=== PATIENT | female | born 1990 | race Caucasian/White ===

== ENCOUNTER 2019-02-13 13:35 | Inpatient (IN) | payer OTHER, SELFPAY ==
[2019-02-13 13:54] VITALS: BMI 38.2
[2019-02-13] MEDS: Lactated Ringers 1,000 ML 50 ML IV (13:55)
[2019-02-13 14:14] LABS: Absolute Lymphocyte Count 1.72 X10^3/ul (0.83-4.51); Absolute Neutrophil Count 7.7 X10^3/uL (2.0-7.7); Eosinophil# 0.04 X10^3/uL; Eosinophils% 0.4 % (0-5); Hematocrit 38.6 % (37-47); Hemoglobin 13.1 g/dl (12.0-15.0); Lymphocyte # 1.72 X10^3/ul (4.0); Mean Corp Hgb Conc 33.9 g/gl (32-36); Mean Corpuscular Hgb 26.7 pg (27.0-32.0); Mean Corpuscular Volume 78.8 fL (81-99); Mean Platelet Vol. 11.1 fl (6.2-12.0); Monocyte# 0.63 X10^3/uL; Monocyte% 6.2 % (0-10); Neutrophil # 7.67 X10^3/uL (2.7-7.7); Platelet Count 115 K/mm3 (150-450); RBC Distribution Width CV 14.4 % (11.6-14.6); RBC Distribution Width SD 40.3 fl (35.1-43.9); White Blood Count 10.1 K/mm3 (4.4-11.0)
[2019-02-13 14:16] LABS: POSITIVE COUNT NO; POSITIVE DIFFERENTIAL NO; POSITIVE MORPHOLOGY NO
--- NOTE | 2019-02-13 14:20 | PCM.HP.OB ---
- Problem List (1) History of hyperthyroidism Status: Acute (2) History of depression Status: Acute (3) Family history of complex congenital heart disease Status: Acute (4) Gestational thrombocytopenia Status: Acute (5) Post-dates Status: Acute History Date of Admission: 02/13/19 Final TITO: 02/08/19 Final TITO Source: US <20 weeks Gestational age: 40 Weeks and 5 Days History of this : This is a 28 year-old, G [2], P [1001], at 40 weeks gestational age. Presented to ER with complaint of uterine contractions. Upon arrival patient found to be 7cm dilated. at bedside. Denies any leakage of fluid or vaginal bleeding. Baby moving well. Allergies morphine Allergy (Verified 02/13/19 13:55) Hives Home Medications: Home Medications Vits [Prenatabs FA] 1 tablet PO DAILY 02/13/19 Sertraline HCl [Zoloft] 50 mg PO DAILY 02/13/19 Smoking Status: Former smoker Alcohol: None Heart Tracin, moderate variability, accels, no decels, Category 1 TOCO: Every 2-3minutes, moderate to strong to palpation. History Past Pregnancies: Past Pregnancies Delivery Date Name GA/Weeks Outcome Route Weight Gender Labor Length Anesthesia Delivery Location Provider FOB Labs: GBS negative Urine tox screen negative RPR negative Rubella Immune HBsAG negative HIV negative O positive 1hr GCT 98 nml GC/CT negative Expected Infant Delivery Method: Spontaneous Vaginal Review of Systems Constitutional: Denies: Chills, Fever, Weight Change HEENT: Denies: Head Aches, Sinus Congestion, Sinus Drainage Cardiovascular: Denies: Chest Pain, Palpitations Respiratory: Denies: Cough, Shortness of breath at rest, Sputum production Genitourinary: Denies: Dysuria Psychiatric: Denies: Anxiety, Depression, Homicidal Ideations, Suicidal Ideations Physical Exam General: Alert, Oriented x3, No apparent distress HEENT: Atraumatic, Normocephalic Cardiovascular: Regular rate, Regular Rhythm, No murmurs Lungs: Clear to auscultation, Normal air movement, No rhonchi, No wheeze Abdomen: Gravid Extremities:: No edema Neurological: Deep Tendon Reflexes 2+/4 and Symmetrical. Negative for: Clonus SPARERIBS TRIMMER: Normal external genitalia Estimated gestational size: Appropriate for gestational size Presentation: Cephalic Cervix Dilation (cm): 7 - IBOW, vertex Station: -1 Effacement (%): 70 Assessment/Plan All Active Problems History of hyperthyroidism (Acute) History of depression (Acute) Family history of complex congenital heart disease (Acute) Gestational thrombocytopenia (Acute) Post-dates (Acute) This is a 28 year-old, G [2], P [1001], at 40 weeks gestational age. A:Active Labor Category 1 FHT P: 1) Admit to L&D. Routine labs 2) Desires without epidural. Will offer continuous labor support, nitrous, IV pain medication if desires. 3) notified of patient in labor and admission. 4) May do intermittent auscultation if category 1 FHT on admission.
[2019-02-13] MEDS: 0.9% Saline Lock 10 ML Syringe IV ×2 (15:02→18:35)
[2019-02-13] MEDS: Ondansetron 4 MG/2 ML Vial IV (15:25)
[2019-02-13] MEDS: fentaNYL-bupivacaine (epidural) 100 ML BAG EPIDURAL (15:45)
[2019-02-13] MEDS: Oxytocin 30 units/NS 500 ml 30 UNITS/500 ML IV.SOLN 334 UNITS IV (16:45)
[2019-02-13] MEDS: Oxytocin 30 units/NS 500 ml 30 UNITS/500 ML IV.SOLN 167 UNITS IV (17:15)
--- NOTE | 2019-02-13 17:15 | PCM.OPRPT ---
Problem List (1) History of hyperthyroidism Status: Acute (2) History of depression Status: Acute (3) Family history of complex congenital heart disease Status: Acute (4) Gestational thrombocytopenia Status: Acute (5) Post-dates Status: Acute (6) (normal spontaneous vaginal delivery) Status: Acute (7) First degree perineal laceration Status: Acute (8) True knot in umbilical cord Status: Acute (9) Perineal hematoma during delivery Status: Acute Vaginal Delivery Maternal Presentation: Active Labor Amniotic Membrane Rupture Type: Artificial Amniotic Fluid Description: Clear Final TITO: 02/13/19 Final TITO Source: US <20 weeks Gestational age: 40 Weeks and 0 Days Date of Procedure: 02/13/19 Pre-Operative Diagnosis: Active Labor Post-Operative Diagnosis: Surgery/ Procedure Performed: Spontaneous Vaginal Delivery Type of Anesthesia: Epidural, Local with 1% lidocaine Description of Procedure: Epidural placed with some relief. [place] increased pressure. Unable to auscultate FHT, FSE placed. Patient with increased pain and strong urge to push. FHT down to 60's and back up to 70-80's. Good maternal pushing effort. of viable male over 1st degree perineal laceration. head delivered and body forth coming. Infant placed on maternal abdomen. Mouth and nares suctioned for secretions. Cord clamping delayed 30 seconds. Poor respiratory effort. Cord clamped and cut by FOB. handed to awaiting rover tender and nursing staff. Strong cry. APGARS 7,9. Pitocin started for active 3rd stage management. Placenta delivered, intact via imndy, 3 vessel cord, true knot in cord. Cord gases obtained. Perineum inspected and revealed 1st degree perineal laceration, repaired with 1% lidocaine and 3.0 vicryl. Perineal hematoma on left side of perineum. Stable and not increasing in size, approximately 2x2cm. Fundus firm, hemostasis achieved, EBL 450ml. Vaginal sweep completed. Sponge and instrument count correct. Mom and baby stable, family bonding well. Planning to bottle feed. notified of delivery. Presentation: Vertex Placental Delivery Description: Spontaneous Placenta Disposition: [facility] Cord Vessel Description: 3 Vessels Cord Gases drawn per routine: ABG, VBG Cord Entanglement: None Estimated Blood Loss: 450ml A gender: Male (1 minute): 7 (5 minute): 9 Episiotomy Description: None Laceration: Perineal Extension/lac, 1st degree Medications given after delivery: IV Pitocin Complications: None
--- NOTE | 2019-02-13 17:22 | OP.PCM_ITS ---
Problem List (1) History of hyperthyroidism Status: Acute (2) History of depression Status: Acute (3) Family history of complex congenital heart disease Status: Acute (4) Gestational thrombocytopenia Status: Acute (5) Post-dates Status: Acute (6) (normal spontaneous vaginal delivery) Status: Acute (7) First degree perineal laceration Status: Acute (8) True knot in umbilical cord Status: Acute (9) Perineal hematoma during delivery Status: Acute Vaginal Delivery Maternal Presentation: Active Labor Amniotic Membrane Rupture Type: Artificial Amniotic Fluid Description: Clear Final TITO: 02/13/19 Final TITO Source: US <20 weeks Gestational age: 40 Weeks and 0 Days Date of Procedure: 02/13/19 Pre-Operative Diagnosis: Active Labor Post-Operative Diagnosis: Surgery/ Procedure Performed: Spontaneous Vaginal Delivery Type of Anesthesia: Epidural, Local with 1% lidocaine Description of Procedure: Epidural placed with some relief. [place] increased pressure. Unable to auscultate FHT, FSE placed. Patient with increased pain and strong urge to push. FHT down to 60's and back up to 70-80's. Good maternal pushing effort. of viable male over 1st degree perineal laceration. head delivered and body forth coming. Infant placed on maternal abdomen. Mouth and nares suctioned for secretions. Cord clamping delayed 30 seconds. Poor respiratory effort. Cord clamped and cut by FOB. handed to awaiting airline lounge receptionist and nursing staff . Strong cry. APGARS 7,9. Pitocin started for active 3rd stage management. Placenta delivered, intact via mindy, 3 vessel cord, true knot in cord. Cord gases obtained. Perineum inspected and revealed 1st degree perineal laceration, repaired with 1% lidocaine and 3.0 vicryl. Perineal hematoma on left side of perineum. Stable and not increasing in size, approximately 2x2cm. Fundus firm, hemostasis achieved, EBL 450ml. Vaginal sweep completed. Sponge and instrument count correct. Mom and baby stable, family bonding well. Planning to bottle feed. notified of delivery. Presentation: Vertex Placental Delivery Description: Spontaneous Placenta Disposition: [facility] Cord Vessel Description: 3 Vessels Cord Gases drawn per routine: ABG, VBG Cord Entanglement: None Estimated Blood Loss: 450ml A gender: Male (1 minute): 7 (5 minute): 9 Episiotomy Description: None Laceration: Perineal Extension/lac, 1st degree Medications given after delivery: IV Pitocin Complications: None
[2019-02-13] MEDS: Ibuprofen 600 MG Tablet PO (18:34)
[2019-02-13 20:15] VITALS: BP 133/82; PULSE 90; RESP 16; TEMP 36.7; O2SAT 98
[2019-02-13] MEDS: Sertraline 50 MG Tablet PO (21:45)
[2019-02-13] MEDS: Acetaminophen 500 MG Tablet 1000 MG PO (22:20)
[2019-02-14 00:30] VITALS: BP 130/88; PULSE 68; RESP 16; TEMP 36.2; O2SAT 96
[2019-02-14] MEDS: Ibuprofen 600 MG Tablet PO ×2 (02:20→11:27)
[2019-02-14 04:00] VITALS: BP 133/87; PULSE 82; RESP 16; TEMP 36.3; O2SAT 96
[2019-02-14 04:45] LABS: Hematocrit 31.6 % (37-47); Hemoglobin 10.4 g/dl (12.0-15.0); Mean Corp Hgb Conc 32.9 g/gl (32-36); Mean Corpuscular Hgb 26.3 pg (27.0-32.0); Mean Platelet Vol. 10.9 fl (6.2-12.0); Platelet Count 130 K/mm3 (150-450); RBC Distribution Width CV 14.4 % (11.6-14.6); RBC Distribution Width SD 40.7 fl (35.1-43.9); Red Blood Count 3.95 M/mm3 (4.2-5.4); White Blood Count 12.8 K/mm3 (4.4-11.0)
[2019-02-14 04:50] LABS: Scan Indicated on CBC? Y/N NO
[2019-02-14] MEDS: Acetaminophen 500 MG Tablet 1000 MG PO (07:49)
[2019-02-14 07:52] VITALS: BP 136/89; PULSE 87; RESP 18; TEMP 36.4; O2SAT 97
--- NOTE | 2019-02-14 08:28 | DCINST_ITS ---
Discharge Diet: No Restrictions Discharge Activity: Return to Normal Activity, May not drive while taking narcotic pain medications., May Shower May resume sexual activity in: 4-6 weeks Additional Activity Instructions:: Nothing in the vagina for 4-6 weeks. You may return to work/school in 6 weeks. Call your doctor if your incision/area has: Continuous Slow Oozing, Sudden Increased Bleeding, Increased Pain/ Swelling, Increased Redness, Foul Smelling Discharge Call your doctor if you observe: Fever of 101 or Higher, Inability to urinate, Inability to have a bowel movement, Using more than one pad per hour, Uncontrolled pain Additional Instructions: If you experience any of the following, contact your healthcare provider. * Bleeding that soaks a pad every hour for 2 hours * Fever 100.4 or higher * Unrelieved incision or abdominal pain * Swelling, redness, discharge or bleeding from your incision or episiotomy site * Your incision begins to separate * Problems urinating (including inability to urinate or burning while urinating). * Visual changes * Severe headache * Flu-like symptoms * Pain or redness in one of both of your breasts * Pain, warmth, tenderness or swelling in your legs, especially the calf area * Frequent nausea and vomiting * Symptoms of depression or anxiety If you experience any of the following, call 911 or go to the nearest Emergency Room. * Chest pain * Problems breathing * Seizure activity * Partial or complete paralysis of a body part, slurred speech, weakness or drooping of the face, or a sudden inability to walk or hold your balance Allergies/Adverse Reactions: Allergies morphine Allergy (Verified 02/13/19 13:55) Hives Medications to take at Discharge Vits [Prenatabs FA] 1 tablet PO DAILY 02/13/19 Sertraline HCl [Zoloft] 50 mg PO DAILY 02/13/19 Please Follow Up With: Lexie Ray CNM When: Call to make an appointment with your provider in 2 weeks and 6 weeks. Primary Care Physician: Ernst Islas MD [Primary Care Provider] - Test Results: Test results from this visit will be discussed in further detail at your follow- up appointment, if applicable. Proposed Discharge Date: 02/15/19
--- NOTE | 2019-02-14 08:41 | PCM.PN.OB ---
Patient Problems: Active and Suspected Problems History of hyperthyroidism (Acute) History of depression (Acute) Family history of complex congenital heart disease (Acute) Gestational thrombocytopenia (Acute) Post-dates (Acute) (normal spontaneous vaginal delivery) (Acute) First degree perineal laceration (Acute) True knot in umbilical cord (Acute) Perineal hematoma during delivery (Acute) Subjective: Patient sitting up in bed, bonding with baby at this time. Baby just finished a formula feeding session - baby is tolerating sensitive formula better now. Patient denies any issues; denies issues with ambulation or urination. Denies GUTHRIE, scotoma or dizziness. Objective: VSS, Afebrile Nipples without cracks, blisters Abdomen NT x 4 quadrants, FF midline 3FB below umbilicus +2/4 reflexes in LE, no edema, negative calf tenderness to palpation No perineal edema noted, known perineal hematoma has decreased in size and is now [id number] and soft. Ecchymoses> Rt. Labia than Lt. labia scant rubra lochia - Physical Exam General: Alert, Oriented x3, Cooperative HEENT: Atraumatic, PERRLA, EOMI, Normocephalic Lungs: Normal air movement Cardiovascular: Regular rate, No murmurs Abdomen: Soft, Non Tender, Passing Flatus Extremities: No edema, Capillary Refill Less than 3 Seconds, Peripheral Pulses Normal Skin: No rashes, No breakdown Musculoskeletal: No Tenderness to Palpation of Joints or Extremities Neurological: Cranial nerves II-XII grossly intact, Deep Tendon Reflexes 2+/4 and Symmetrical Psych/Mental Status: Normal Affect, Appropriate Vital Signs Temp Pulse Resp BP Pulse Ox 97.5 F L 87 18 136/89 H 97 02/14/19 07:52 02/14/19 07:52 02/14/19 07:52 02/14/19 07:52 02/14/19 07:52 Oxygen Delivery Method Room Air Weight: 237 lb Body Mass Index (BMI) 38.2 Intake and Output for Last 24 Hours 02/12/19 02/13/19 02/14/19 23:59 23:59 23:59 Output Total 100 / 100 400 / 400 Balance -100 / -100 -400 / -400 Laboratory Tests Past 24 Hrs 02/13/19 02/13/19 02/14/19 13:55 13:55 04:15 WBC 10.1 12.8 H RBC 4.90 3.95 L Hgb 13.1 10.4 L Hct 38.6 31.6 L MCV 78.8 L 80.0 L MCH 26.7 L 26.3 L MCHC 33.9 32.9 RDW 14.4 14.4 RDW Differential 40.3 40.7 Plt Count 115 L 130 L MPV 11.1 10.9 Immature Gran % (Auto) 0.400 Neut % (Auto) 76.0 H Lymph % (Auto) 17.0 L [place] % (Auto) 6.2 Eos % (Auto) 0.4 Baso % (Auto) 0.0 Absolute Neuts (auto) 7.7 Absolute Lymphs (auto) 1.72 Total Counted Not Reportable Blood Type O POSITIVE Antibody Screen NEGATIVE Medical Necessity - Tobacco Use Smoking Status: Former smoker Assessment/Plan All Active Problems History of hyperthyroidism (Acute) History of depression (Acute) Family history of complex congenital heart disease (Acute) Gestational thrombocytopenia (Acute) Post-dates (Acute) (normal spontaneous vaginal delivery) (Acute) First degree perineal laceration (Acute) True knot in umbilical cord (Acute) Perineal hematoma during delivery (Acute) 28 y/o sp , PPD #1, Normal PP Course P: 1) Continue present management 2) Anticipate discharge to home tomorrow Celeste PACKER
[2019-02-14] MEDS: Senna/Docusate Sodium 1 Tablet PO (11:27)
[2019-02-14 12:50] VITALS: BP 117/84; PULSE 89; RESP 18; TEMP 36.2; O2SAT 98
--- NOTE | 2019-02-14 16:45 | CASEMGMT ---
Social Work Brief Assessment - Labor and Delivery Unit Refer documentation below for further details. Date of Referral/Notification: 02.14.2019 Time of Referral: 1122 Referred By: Lexie Ray Nurse Contract Runner Reason for Referral: Maternal history of depression; currently on Zoloft. Date of Intervention: 02.14.2019 Time of Intervention: 1645 Informant: Medical record and mother of baby (MOB) Brit Cárdenas; father of baby (FOB) Amadeo Cárdenas also present for social work visit. History: MOB is G2, P1 to 2 after delivering baby Remy on 02.13.2019. Also, at home is a son, Alexey who is 3 and was born at [facility]. FOB is the father to both children. MOB and FOB are and have been together for total of 5 years. 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 FOB works at [employer] and is on the [employer] department. MOB reports depression after Alexey was born which lasted for a year. MOB describes this depression as significant, to the point that MOB only would provided the basic care to Alexey, and as soon as FOB came home MOB would leave all care to the FOB. MOB and FOB report at about a year MOB started opening and letting FOB know what was going on. MOB denies any history of suicidal ideation or intent, no desire to harm self or baby, just describes lack of motivation and interest. MOB reports that decided to be proactive this and started on antidepressant at 12 weeks gestation. MOB and FOB did discuss that delivery with first child was hard, MOB did have some hemorrhaging after , and that for the first 45 minutes of Alexey?s life the baby was not breathing on his own. FOB reports there was not type of social work support, or education even about depression that the family can remember so MOB?s depression was something that took both by surprise. Assessment: MOB and FOB report adequate housing, supplies for baby including sleep space, and transportation. Report to have adequate support from both sides of the family. MOB and FOB both get maternity/paternity leave for 6 weeks and will be taking this concurrently. MOB reports to feel different already after delivering Remy, and in a positive way. MOB reports to feel a connection to baby Remy, a desire to care for the baby, and interest in parenting. MOB reports to have some guilt over not having same feelings after first baby, but that relationship with first child is at a good spot and really started to lara and connect about a year ago. MOB reports intent to remain on medication in the intermediate, even after this period ends. MOB reports to understand the importance of talking and letting support system help. MOB reports being open to counseling should medications not be enough in the future. MOB and FOB also report that OBGYN indicated that can up MOB?s dose or mediation if needed in the future. MOB with a constricted affect, thought smiled at appropriate times, teary eyed when recounting past depression history. FOB presented as supportive, remained quiet overall but provided input appropriately and seemed to have an interest in MOB?s wellbeing. MOB and FOB appear to be communicating openly at this point, and both seem to be aligned with importance of maternal wellbeing. Both listened to discussion on importance of support, signs, and support available. Touched on risk for paternal depression as well, encouraged FOB to care of self. Both MOB and FOB expressed appreciation for child welfare social worker touching base on how things are going. Plan: MOB and baby to home. Resources for depression and counseling provided. This screenplay writer?s contact number provided as well should MOB have questions about information provided today. No further needs requested or indicated. -JENY Fan, DIE TRY OUT WORKER [employer]AMPING
[2019-02-14 16:59] VITALS: BP 134/79; PULSE 82; RESP 18; TEMP 36.4; O2SAT 99
== END 2019-02-14 18:05 | disposition home or self-care (01) | DRG 806 ==
PROVIDERS: Advanced Practice Midwife; Admitting Provider Obstetrics & Gynecology; Family Provider Family Medicine; PCP Family Medicine; Referring Provider Obstetrics & Gynecology; Visit Provider Obstetrics & Gynecology
DX: O76 Abnormality in fetal heart rate and rhythm complicating labor and delivery (principal); O99.113 Other diseases of the blood and blood-forming organs and certain disorders involving the immune mechanism complicating pregnancy, third trimester; Z37.0 Single live birth; O71.7 Obstetric hematoma of pelvis; O62.3 Precipitate labor; O48.0 Post-term pregnancy; D69.59 Other secondary thrombocytopenia; O69.2XX0 Labor and delivery complicated by other cord entanglement, with compression, not applicable or unspecified; O70.0 First degree perineal laceration during delivery; Z3A.40 40 weeks gestation of pregnancy; O99.213 Obesity complicating pregnancy, third trimester; E66.01 Morbid (severe) obesity due to excess calories; Z87.59 Personal history of other complications of pregnancy, childbirth and the puerperium; Z87.891 Personal history of nicotine dependence; Z82.79 Family history of other congenital malformations, deformations and chromosomal abnormalities
CPT/HCPCS: 59050; 85025; 85027; 86850; 86900; 99218; J7120; A4216; G0378; J2405